=== PATIENT | female | born 1940 | race Two or more races ===

== ENCOUNTER 2018-09-23 18:23 | Inpatient (IN) | payer MEDICARE, MEDICAID ==
[~2018-09-23] VITALS: Ht 165.1 cm; Wt 77.8 kg
[~2018-09-23 18:23] MED LIST: LEVOTHYROXINE; LISIPOW; METROPOLOL
[2018-09-23] MEDS ORDERED: SODIUM CHLORIDE 0.9% 500 ML IVB ONE (18:31)
[2018-09-23] MEDS ORDERED: ONDANSETRON HCL 4 MG/2 ML VIAL IV ONE (18:45)
[2018-09-23] MEDS ORDERED: MORPHINE SULFATE 4 MG/ML SYR/VIAL IV ONE (18:45)
[2018-09-23] MEDS ORDERED: ACETAMINOPHEN 325 MG TAB PO ONE (18:45)
[2018-09-23] MEDS ORDERED: cloNIDine HCL 0.1 MG TAB PO ONE (18:45)
[2018-09-23 18:59] LABS: Basophils # (auto) 0 uL; Basophils % (auto) 0.4 % (0.0-2.0); Eosinophils # (auto) 0 uL; Eosinophils % (auto) 0.2 % (0.0-7.0); Hematocrit 32.1 % (36.0-46.0); Hemoglobin 10.6 g/dL (12.2-16.2); Lymphocytes # (auto) 0.7 uL; Lymphocytes % (auto) 5.8 % (10.0-50.0); Mean Corpuscular Hemoglobin 29.5 pg (28.0-32.0); Mean Corpuscular Hgb Conc. 33.1 g/dL (32.0-36.0); Mean Corpuscular Volume 89.1 fL (80.0-100.0); Monocytes # (auto) 1.2 uL; Monocytes % (auto) 9.7 % (0.0-12.0); Neutrophils # (auto) 10.7 uL; Neutrophils % (auto) 83.9 % (37.0-80.0); Platelet Count (auto) 199 10^3/uL (140-450); White Blood Cell 12.7 10^3/uL (4.4-10.8)
[2018-09-23 19:25] LABS: Alanine Aminotransferase 29 U/L (13-56); Albumin 3.5 g/dL (3.4-5.0); Anion Gap 11 (5-15); Aspartate Aminotransferase 24 U/L (15-37); BUN/Creatinine Ratio 20.4; Blood Urea Nitrogen 23 mg/dL (7-18); Calcium 8.4 mg/dL (8.5-10.1); Carbon Dioxide 19 mmol/L (21-32); Chloride 106 mmol/L (98-107); GFR African American 60 mL/min; GFR Non-African American 49 mL/min; Glucose 107 mg/dL (74-106); Lipase 48 U/L (73-393); Potassium 3.9 mmol/L (3.5-5.1); Sodium 136 mmol/L (136-145)
[2018-09-23 19:31] LABS: Alkaline Phosphatase 83 U/L (45-117); Bilirubin, Total 0.6 mg/dL (0.2-1.0); Total Protein 7.4 g/dL (6.4-8.2)
[2018-09-23] MEDS ORDERED: IOHEXOL 300 MG/ML 100ML BOTTLE IJ ONE (20:20)
[2018-09-23] MEDS ORDERED: cefTRIAXone 1GM/50ML D5W 50 ML IV ONE (20:45)
[2018-09-23] MEDS ORDERED: SODIUM CHLORIDE 0.9% 500 ML IV ONE (20:47)
[2018-09-23 21:16] LABS: Urine Bacteria MANY /hpf (None Seen); Urine Blood 3+ /uL (Negative); Urine WBC 4335 /hpf (0 - 5); Urine WBC Clumps PRESENT /hpf (None Seen)
[2018-09-24] MEDS ORDERED: DOCUSATE SOD 100 MG CAP PO ONE
[2018-09-24] MEDS ORDERED: ONDANSETRON HCL 4 MG/2 ML VIAL IV PRN (00:15)
--- NOTE | 2018-09-24 01:31 | NUR ---
PATIENT ADMITTED TO UNIT Patient admitted from ED to floor via stretcher. Patient able to transfer from stretcher to bed with minimal assistance. Patient is A&O X's 4 with no s/s of distress. Patient reports no pain. Educated patient on POC/to use call light when in need of assistance and help to commode. Oriented patient to unit: visiting hours/lights/TV/Call light/ and phone. Patient verbalized understanding. Bed is in lowest/locked position with side rails up X's 2 and call light is within reach of patient. Commode is at bedside. Will continue to monitor for changes and round hourly/PRN.
[2018-09-24 01:35] LABS: Hematocrit 29.7 % (36.0-46.0); Hemoglobin 9.8 g/dL (12.2-16.2)
--- NOTE | 2018-09-24 02:00 | NUR ---
HOME MEDICATIONS Patient reports that she will have her roommate bring in her home medications tomorrow
[2018-09-24 02:30] VITALS: BP 126/46
--- NOTE | 2018-09-24 03:42 | NUR ---
ELIMINATION Patient up and used bedside commode with minimal assistance. Patient reported pain with urination. No blood in urine was seen.
[2018-09-24 05:00] VITALS: BP 113/50
[2018-09-24] MEDS: PANTOPRAZOLE 40 MG TAB PO SCH (06:16)
--- NOTE | 2018-09-24 07:25 | NUR ---
Open Shift Note Received report on patient, asleep in bed but easily awoken. Patient shows no signs of distress at this time, states pain when trying to urinate. Discussed POC with patient. Patient stated they needed to urinate, helped patient to bedside commode. Bed in lowest locked position, side rails up x2 and call light within reach. Will continue to monitor.
[2018-09-24 09:11] VITALS: BP 123/57
[2018-09-24] MEDS: METOPROLOL SUCCINATE XL 50 MG TAB PO SCH ×2 (10:00→12:16)
[2018-09-24] MEDS: LISINOPRIL 5 MG TAB PO SCH ×2 (10:00→12:16)
[2018-09-24] MEDS: cefTRIAXone 1GM/50ML D5W 50 ML IV SCH (10:37)
[2018-09-24] MEDS: ACETAMINOPHEN 325 MG TAB PO PRN (12:15)
--- NOTE | 2018-09-24 12:44 | NUR ---
Dr Crews at Bedside Dr Courtney Crews at patient bedside.
[2018-09-24 13:11] VITALS: BP 155/90
--- NOTE | 2018-09-24 15:45 | NUR ---
Michael catheter insertion Patient experiencing retention and urge to urinate but not able to empty bladder all the way. Order in place for michael catheter. Patient educated on catheter and reason for insertion. All questions answered. Michael catheter 16 guage Tajik inserted with clean sterile technique. Patient tolerated well.
[2018-09-24 17:22] VITALS: BP 136/60
--- NOTE | 2018-09-24 18:40 | NUR ---
Closing Note Patient awake and sitting up in bed. Patient shows no signs of distress at this time. Bed in lowest locked position, side rails up x2 and call light within reach.
--- NOTE | 2018-09-24 19:00 | NUR ---
OPENING NOTE Received report from day shift RN. Patient is A&O X's 4 with no s/s of distress noted. Patient reports no pain. Patient's family is at bedside. Educated patient on POC and to use call light when in need of assistance. Patient verbalized understanding. Bed is in lowest/locked position with side rails up X's 2 and call light is within reach of patient. Commode is at bedside. Wright is below level of bladder. Urine is red with some blood clots. Will continue to monitor for changes and round hourly/PRN.
--- NOTE | 2018-09-24 19:03 | NUR ---
Endorsed Care Endorsed care to NOC nurse.
[2018-09-24] MEDS: HYDROcodone-ACET 5/325MG TAB PO PRN (20:54)
[2018-09-24 22:00] VITALS: BP 140/57
[2018-09-25] MEDS: HYDROcodone-ACET 5/325MG TAB PO PRN (02:01)
[2018-09-25 05:00] VITALS: BP 125/62
[2018-09-25 05:05] LABS: Basophils # (auto) 0 uL; Basophils % (auto) 0.6 % (0.0-2.0); Eosinophils # (auto) 0.1 uL; Eosinophils % (auto) 1.2 % (0.0-7.0); Hematocrit 29.5 % (36.0-46.0); Lymphocytes # (auto) 0.8 uL; Lymphocytes % (auto) 12.2 % (10.0-50.0); Mean Corpuscular Hemoglobin 30.3 pg (28.0-32.0); Mean Corpuscular Hgb Conc. 33.9 g/dL (32.0-36.0); Mean Corpuscular Volume 89.3 fL (80.0-100.0); Monocytes # (auto) 0.8 uL; Monocytes % (auto) 12.3 % (0.0-12.0); Neutrophils # (auto) 4.7 uL; Neutrophils % (auto) 73.7 % (37.0-80.0); Platelet Count (auto) 189 10^3/uL (140-450); Red Blood Cells 3.31 10^6/uL (4.0-5.20); Red Cell Distribution Width 15.6 % (11.8-14.3); White Blood Cell 6.4 10^3/uL (4.4-10.8)
[2018-09-25 05:16] LABS: Anion Gap 11 (5-15); Blood Urea Nitrogen 16 mg/dL (7-18); Calcium 8.4 mg/dL (8.5-10.1); Carbon Dioxide 20 mmol/L (21-32); Chloride 111 mmol/L (98-107); GFR African American 74 mL/min; GFR Non-African American 61 mL/min; Glucose 130 mg/dL (74-106); Potassium 4.3 mmol/L (3.5-5.1); Sodium 142 mmol/L (136-145)
[2018-09-25] MEDS: PANTOPRAZOLE 40 MG TAB PO SCH (06:12)
[2018-09-25] MEDS: cefTRIAXone 1GM/50ML D5W 50 ML IV SCH (08:30)
[2018-09-25 09:05] VITALS: BP 132/63
[2018-09-25] MEDS: LISINOPRIL 5 MG TAB PO SCH (10:34)
--- NOTE | 2018-09-25 12:11 | NUR ---
RE: URINE CULTURES INFORMED MED OF THE URINE CULTURES RESULTS. ORDERS RECEIVED.
--- NOTE | 2018-09-25 12:13 | NUR ---
RE: MIDLINE PAGED HOUSE SUP FOR THE ON-CALL PICC LINE NURSE.
--- NOTE | 2018-09-25 12:14 | NUR ---
RE: SOCIAL SERVICE PAGED PER MD ORDERS.
[2018-09-25] MEDS ORDERED: ERTAPENEM SOD INJ 1 GM in SODIUM CHL 0.9% 50 ML IV ONE (12:15)
[2018-09-25] MEDS: METOPROLOL SUCCINATE XL 50 MG TAB PO SCH (12:57)
--- NOTE | 2018-09-25 13:06 | NUR ---
o/c note Dottie called and stated pt has HH order for IV abx, instructed her to fax to [facility] and to [facility] and to write on cover sheet pt to d/c on thursday. I called Mony at [facility] and she accepted pt to service on Thursday. I informed Dottie of [facility] acceptance and to refax cover sheet with note that [facility] has accepted pt and start of care will begin thursday Addendum: 09/27/18 at 1531 by China Cary RN CM correction, spoke to Sadia at [facility] and not Mony
[2018-09-25 13:07] VITALS: BP 150/79
--- NOTE | 2018-09-25 15:09 | NUR ---
RE: INFORMATION FAX REQUESTED INFORMATION FAXED TO [facility] AND [facility].
--- NOTE | 2018-09-25 16:33 | NUR ---
MIDLINE placement Patient/Patient significant other educated on need for MIDLINE placement. All risks and benefits explained and all questions and concerns addressed prior to procedure. Noted past medical history and allergies with no contraindications. Plt count within acceptable range. 4 fr MIDLINE inserted via left basilic vein using [employer] US and Tip Location System. Sterile technique with maximum barrier precautions utilized. Blood return obtained from the single lumen and it flushed easily with NS using proper technique. MIDLINE secured with Stat-lock; biodisc and occlusive dressing applied. Less than 5ml EBL noted during procedure. MIDLINE 20cm internally w/ 0cm externally. *Baseline Arm Circumference 32cm at 1cm above insertion site. MIDLINE lot # [id number]. Note:
--- NOTE | 2018-09-25 16:34 | NUR ---
OK to use MIDLINE Chely Oates notified now OK to use MIDLINE.
[2018-09-25 16:44] VITALS: BP 161/75
[2018-09-25] MEDS: cloNIDine HCL 0.1 MG TAB PO PRN (16:47)
[2018-09-25] MEDS: ACETAMINOPHEN 325 MG TAB PO PRN (18:16)
--- NOTE | 2018-09-25 19:15 | NUR ---
Opening Shift Note Assumed care of patient, awake and alert. Eating dinner independently and tolerating well. No S/S of distress/SOB or pain. Instructed on POC and to call for assist PRN, will continue to monitor for changes Q1hr and PRN.
[2018-09-25] MEDS: DOCUSATE SOD 100 MG CAP PO PRN (21:52)
[2018-09-25 22:01] VITALS: BP 166/75
[2018-09-25 22:40] VITALS: BP 147/66
[2018-09-26 04:41] VITALS: BP 157/75
[2018-09-26 05:13] LABS: Basophils # (auto) 0.1 uL; Basophils % (auto) 1.1 % (0.0-2.0); Eosinophils # (auto) 0.1 uL; Eosinophils % (auto) 2.3 % (0.0-7.0); Hematocrit 30.9 % (36.0-46.0); Hemoglobin 10.3 g/dL (12.2-16.2); Lymphocytes # (auto) 1.1 uL; Lymphocytes % (auto) 21.8 % (10.0-50.0); Mean Corpuscular Hemoglobin 29.6 pg (28.0-32.0); Mean Corpuscular Hgb Conc. 33.3 g/dL (32.0-36.0); Monocytes # (auto) 0.7 uL; Neutrophils % (auto) 60.8 % (37.0-80.0); Nucleated Red Blood Cells % 0.1 %; Platelet Count (auto) 215 10^3/uL (140-450); Red Blood Cells 3.47 10^6/uL (4.0-5.20); Red Cell Distribution Width 15.6 % (11.8-14.3); White Blood Cell 4.9 10^3/uL (4.4-10.8)
--- NOTE | 2018-09-26 06:36 | NUR ---
ROUNDS PATIENT AWAKE AND ALERT. DENIES PAIN OR DISCOMFORT. VS WNL.
[2018-09-26] MEDS: PANTOPRAZOLE 40 MG TAB PO SCH (06:45)
[2018-09-26] MEDS: cloNIDine HCL 0.1 MG TAB PO PRN ×2 (07:09→22:16)
[2018-09-26 08:54] VITALS: BP 166/79
[2018-09-26] MEDS: LISINOPRIL 5 MG TAB PO SCH (09:58)
[2018-09-26] MEDS: METOPROLOL SUCCINATE XL 50 MG TAB PO SCH (10:00)
[2018-09-26] MEDS: ERTAPENEM SOD INJ 1 GM in SODIUM CHL 0.9% 50 ML IV SCH (10:56)
[2018-09-26 12:46] VITALS: BP 143/70
--- NOTE | 2018-09-26 16:17 | NUR ---
RE: call Received call from [facility], informed of discharge for tomorrow.
--- NOTE | 2018-09-26 16:28 | NUR ---
Re: Family Family at bed side, educated on the contact precautions, will re-enforce if needed.
[2018-09-26 16:58] VITALS: BP 146/61
--- NOTE | 2018-09-26 19:06 | NUR ---
Opening Shift Note Received report from day shift RN Lashon, assumed care of patient. Patient awake and alert, resting in bed. No S/S of distress/SOB or pain. Instructed on POC and to call for assist PRN, will continue to monitor for changes Q1hr and PRN.
[2018-09-26] MEDS: ACETAMINOPHEN 325 MG TAB PO PRN (20:10)
[2018-09-26] MEDS: DOCUSATE SOD 100 MG CAP PO PRN (20:10)
--- NOTE | 2018-09-26 20:24 | NUR ---
Michael catheter dc'd Order to discontinue michael catheter. Michael dc'd with clean technique following deflation of balloon. Patient tolerated well with no complaints of pain. Continue care.
--- NOTE | 2018-09-26 20:40 | NUR ---
PATIENT UP TO COMODE TO URINATE. 25 ML OUTPUT. URINE CLEAR, NO ODOR. PATIENT DENIED PAIN OR DISCOMFORT WHILE URINATING.
[2018-09-26 22:00] VITALS: BP 163/70
--- NOTE | 2018-09-26 22:42 | NUR ---
PATIENT UP TO COMODE TO URINATE. TOLERATED WELL. URINE CLEAR. 35MLS OUTPUT.
[2018-09-27 05:00] VITALS: BP 156/73
[2018-09-27] MEDS: cloNIDine HCL 0.1 MG TAB PO PRN (05:29)
--- NOTE | 2018-09-27 05:59 | NUR ---
ROUNDS PATIENT IN BED RESTING WITH EVEN AND UNLABORED RESPIRATIONS OF 18BPM AND SATURATING AT 95%. CLONIDINE PRN ASSISTANCE COORDINATOR ORDERED FOR ELEVATED BP. WILL RE-ASSESS BP.
[2018-09-27] MEDS: PANTOPRAZOLE 40 MG TAB PO SCH (06:42)
[2018-09-27 08:00] VITALS: BP 135/74
--- NOTE | 2018-09-27 08:00 | NUR ---
RECEIVED PATIENT ALERT AND ORIENTED, NOT IN DISTRESS, RR=18 SAT=96%, HEART R=76, DENIED SOB OR CHEST PAIN, ABDOMEN SOFT WITH ACTIVE BS, LAST BM=09/24 REPORTED, SKIN INTACT WARM TO TOUCH, RADIAL AND PEDAL PULSES PALPABLE, CAP REFILL <3 SECONDS, DENIED PAIN, HEAD OF BED ELEVATED, BED ON LOW POSITION, RAIS UP X2, CALL LIGHT ON REACH, PENDING D/C HOME AND SS PROCESS ORDERED, WILL CONTINUE MONITORING.
--- NOTE | 2018-09-27 10:00 | NUR ---
OUT OF BED TO BSC WITH ASSISTANCE, MEDIUM BROWN AND HARD BM NOTED, RESTING ON BED, NOT IN DISTRESS, DENIED PAIN, PENDING D/C HOME TODAY, HOME HEALTH ARRANGEMENT WAS DONE REPORTED, [facility] WILL PICKUP PATIENT POST 1500 PM REPORTED BY THE DAUGHTER, WILL CONTINUE MONITORING.
[2018-09-27] MEDS: ERTAPENEM SOD INJ 1 GM in SODIUM CHL 0.9% 50 ML IV SCH (11:21)
[2018-09-27] MEDS: METOPROLOL SUCCINATE XL 50 MG TAB PO SCH (11:23)
[2018-09-27] MEDS: LISINOPRIL 5 MG TAB PO SCH (11:24)
[2018-09-27 12:00] VITALS: BP 152/73
[2018-09-27 13:53] VITALS: BP 126/70
--- NOTE | 2018-09-27 15:00 | NUR ---
LARGE SOFT MEDIUM BROWN BM NOTED ON BSC, SITTING ON CHAIR WAITING FOR THE RIDE, WILL CONTINUE MONITORING.
--- NOTE | 2018-09-27 17:10 | NUR ---
D/C INSTRUCTIONS WERE GIVEN, HOME HEALTH INFORMATION AND FOLLOW UP APPOINTMENT INFORMATION AND EDUCATION WAS PROVIDED, VERBALIZED UNDERSTANDING, LT UPPER ARM MIDLINE DRESSING INTACT AND FLASHED CLEAR, VS T=97.4 RR=18 SAT=95% P=74 IN=505/68, NOT IN DISTRESS, DENIED PAIN, D/C HOME ON WC ACCOMPANIED BY HELPER TEACHER TOOK ALL BELONGINGS AND LEFT NOTING BEHIND.
== END 2018-09-27 17:10 | disposition home health service (06) | DRG 872 ==
LOC: ER 18:23 → OVERFLOW 18:24 → CENTRAL 09-24 01:38
PROVIDERS: ADMIT Nurse Practitioner; ATTEND Internal Medicine
DX: A41.9 Sepsis, unspecified organism (principal); N30.00 Acute cystitis without hematuria; N20.0 Calculus of kidney; B96.20 Unspecified Escherichia coli [E. coli] as the cause of diseases classified elsewhere; E11.9 Type 2 diabetes mellitus without complications; E86.0 Dehydration; I10 Essential (primary) hypertension; K57.90 Diverticulosis of intestine, part unspecified, without perforation or abscess without bleeding; R31.9 Hematuria, unspecified; Z90.710 Acquired absence of both cervix and uterus; Z83.3 Family history of diabetes mellitus
CPT/HCPCS: 36415; 74177; 80048; 80053; 81001; 83690; 84484; 85014; 85018; 85025; 86850; 86900; 86901; 87040; 87086; 87088; 87186; G0378; J0696; J1335; J2405